=== PATIENT | female | born 1990 | race American Indian/Alaskan Native ===

== ENCOUNTER 2016-09-07 17:11 | Emergency (ER) | payer SELFPAY | END 2016-09-07 19:04 | disposition left against medical advice (07) | LOC: ED 17:11 | DX: J11.1 Influenza due to unidentified influenza virus with other respiratory manifestations (principal); M79.1 Myalgia; Z53.21 Procedure and treatment not carried out due to patient leaving prior to being seen by health care provider ==

== ENCOUNTER 2019-04-26 00:44 | Emergency (ER) | payer MEDICAID ==
[2019-04-26 02:40] LABS: Hematocrit 33.9 % (30.3-42.9); Hemoglobin 11.5 gm/dl (10.1-14.3); Mean Corpuscular HGB Conc 34 % (30-34); Mean Corpuscular Volume 86 fl (79-97); Platelet Count 276 K/mm3 (140-440); Red Blood Count 3.92 M/mm3 (3.65-5.03); Red Cell Distribution Width 14.3 % (13.2-15.2)
[2019-04-26 03:03] LABS: Alanine Aminotransferase 12 units/L (7-56); Albumin 4.5 g/dL (3.9-5); BUN/Creatinine Ratio 15; Blood Urea Nitrogen 9 mg/dL (7-17); Calcium 9.7 mg/dL (8.4-10.2); Hemolysis Index 3
--- NOTE | 2019-04-26 03:31 | XRay Report ---
CHEST 2 VIEWS INDICATION: SOB. COMPARISON: None. FINDINGS: Support devices: None. Heart: Within normal limits. Lungs/Pleura: No acute air space or interstitial disease. No significant pleural effusion. IMPRESSION: No acute findings. Signer Name: Kevyn Hardwick MD Signed: 04/26/2019 3:27 AM Workstation Name: [id number]
--- NOTE | 2019-04-26 04:17 | Cat Scan Report ---
CT angio chest INDICATION / CLINICAL INFORMATION: Shortness of breath. Elevated d-dimer.. TECHNIQUE: Axial CT images were obtained after injection of Omnipaque 350, 100 cc IV injection. IV contrast usin g CTA protocol. 3 plane MIP / 3D reconstructions were produced. All CT scans at this location are per formed using CT dose reduction for ALARA by means of automated exposure control. COMPARISON: None available. FINDINGS: The lungs contain no mass, infiltrate or pleural fluid. Negative for mediastinal mass or adenopathy. No aneurysm, dissection or pulmonary embolus. Imaging of the upper abdomen is unremarkable. IMPRESSION: Negative for pneumonia or pulmonary embolus. Signer Name: Kevyn Hardwick MD Signed: 04/26/2019 4:13 AM Workstation Name: [id number]
--- NOTE | 2019-04-26 04:53 | Emergency Department Report ---
ED General Adult HPI - General Chief complaint: Dyspnea/Respdistress Stated complaint: SOB Time Seen by Provider: 04/26/19 02:57 Source: patient Mode of arrival: Ambulatory Limitations: No Limitations - Related Data Home Medications Medication Instructions Recorded Confirmed Last Taken Vits96/Iron Fum/Folic 1 tab PO DAILY 10/29/14 10/29/14 10/29/14 10:00 [ Tablet] 1 tab Previous Rx's Medication Instructions Recorded Last Taken Type Ciprofloxacin HCl [Cipro] 500 mg PO Q12H #14 tab 08/21/14 Unknown Rx HYDROcodone/APAP 5-325 [Rainelle 1 each PO Q6HR PRN #12 tablet 08/21/14 Unknown Rx 5-325 mg TAB] Sulfamethoxazole/Trimethoprim 1 each PO Q12H #14 tablet 08/21/14 Unknown Rx [Bactrim Ds] ALBUTEROL Inhaler (OR & NICU) 2 puff IH QID PRN #1 inhalation 04/26/19 Unknown Rx [ProAir HFA Inhaler] Brompheniramine/Pseudoephed/Dm 5 ml PO Q6H PRN #240 syrup 04/26/19 Unknown Rx [Ewplhbwabn-Tdklonxnyts-Wt Syr] predniSONE [Deltasone] 50 mg PO QDAY #5 tab 04/26/19 Unknown Rx Allergies Allergy/AdvReac Type Severity Reaction Status Date / Time No Known Allergies Allergy Verified 04/26/19 00:48 ED Review of Systems ROS: Stated complaint: SOB Other details as noted in HPI Constitutional: no symptoms reported ED Past Medical Hx - Past Medical History Previous Medical History?: No Hx Hypertension: No Hx Congestive Heart Failure: No Hx Diabetes: No Hx Deep Vein Thrombosis: No Hx Renal Disease: No Hx Sickle Cell Disease: No Hx Seizures: No Hx Asthma: No Hx COPD: No Hx HIV: No - Surgical History Past Surgical History?: Yes Additional Surgical History: tubal ligation - Social History Smoking Status: Never Smoker Substance Use Type: None - Medications Home Medications: Home Medications Medication Instructions Recorded Confirmed Last Taken Type Ciprofloxacin HCl [Cipro] 500 mg PO Q12H #14 tab 08/21/14 10/29/14 Unknown Rx HYDROcodone/APAP 5-325 [Rainelle 1 each PO Q6HR PRN #12 tablet 08/21/14 10/29/14 Unknown Rx 5-325 mg TAB] Sulfamethoxazole/Trimethoprim 1 each PO Q12H #14 tablet 08/21/14 10/29/14 Unknown Rx [Bactrim Ds] Vits96/Iron Fum/Folic 1 tab PO DAILY 10/29/14 10/29/14 10/29/14 10:00 History [ Tablet] 1 tab ALBUTEROL Inhaler (OR & NICU) 2 puff IH QID PRN #1 inhalation 04/26/19 Unknown Rx [ProAir HFA Inhaler] Brompheniramine/Pseudoephed/Dm 5 ml PO Q6H PRN #240 syrup 04/26/19 Unknown Rx [Uzfmoaljxh-Acpezvbyaha-Ca Syr] predniSONE [Deltasone] 50 mg PO QDAY #5 tab 04/26/19 Unknown Rx ED Physical Exam - General Limitations: No Limitations General appearance: alert, in no apparent distress - Head Head exam: Present: atraumatic, normocephalic - Eye Eye exam: Present: normal appearance, PERRL, EOMI Pupils: Present: normal accommodation - ENT ENT exam: Present: mucous membranes moist - Neck Neck exam: Present: normal inspection, full ROM - Respiratory Respiratory exam: Present: normal lung sounds bilaterally, chest wall tenderness. Absent: respiratory distress - Cardiovascular Cardiovascular Exam: Present: regular rate, normal rhythm. Absent: systolic murmur, diastolic murmur, rubs, gallop - GI/Abdominal GI/Abdominal exam: Present: soft, normal bowel sounds - Extremities Exam Extremities exam: Present: normal inspection - Back Exam Back exam: Present: normal inspection - Neurological Exam Neurological exam: Present: alert, oriented X3 - Psychiatric Psychiatric exam: Present: normal affect, normal mood - Skin Skin exam: Present: warm, dry, intact, normal color. Absent: rash ED Course Vital Signs 04/26/19 00:47 Temperature 98.1 F Pulse Rate 119 H Respiratory 18 Rate Blood Pressure 130/85 O2 Sat by Pulse 100 Oximetry ED Medical Decision Making - Lab Data Result diagrams: 04/26/19 02:32 04/26/19 02:32 - Medical Decision Making 28-year-old female complains of shortness of breath off and on with some mild chest discomfort. Chest x-ray was pending CT scan were normal. She had an elevated d-dimer. Heart rate was actually in the 80s now 119. His pain is indicated on the initial triage. Patient did confirm that that was not appropriate heart rate is well during the examination. Critical care attestation.: If time is entered above; I have spent that time in minutes in the direct care of this critically ill patient, excluding procedure time. ED Disposition Clinical Impression: SOB (shortness of breath), Chest pain, Left lower lobe pneumonia Disposition: TO HOME OR SELFCARE Is pt being admited?: No Does the pt Need Aspirin: No Condition: Stable Instructions: Chest Pain (ED), Bacterial Pneumonia (ED), Community-acquired Pneumonia (ED) Prescriptions: Brompheniramine/Pseudoephed/Dm [Izfkpmhugo-Ckvoodgqnek-Is Syr] 5 ml PO Q6H PRN #240 syrup PRN Reason: Cough predniSONE [Deltasone] 50 mg PO QDAY #5 tab ALBUTEROL Inhaler (OR & NICU) [ProAir HFA Inhaler] 2 puff IH QID PRN #1 inhalation PRN Reason: Shortness Of Breath Referrals: PRIMARY CARE, [Primary Care Provider] - 3-5 Days [facility] [Provider Group] - 3-5 Days
[2019-04-26 05:29] VITALS: BP 117/74
== END 2019-04-26 05:24 | disposition home or self-care (01) ==
LOC: ED 00:44
DX: J18.1 Lobar pneumonia, unspecified organism (principal); Z98.51 Tubal ligation status; Z98.890 Other specified postprocedural states; Z79.899 Other long term (current) drug therapy
CPT/HCPCS: 36415; 71046; 71275; 80053; 85027; 85379; 99284; Q9967